=== PATIENT | female | born 1985 | race Caucasian/White ===

== ENCOUNTER 2023-07-24 10:28 | Outpatient (CLI) | payer OTHER, SELFPAY | END 2023-07-24 10:29 | disposition home or self-care (01) | PROVIDERS: PCP Physician Assistant Medical; Visit Provider Physician Assistant Medical | DX: Z00.00 Encounter for general adult medical examination without abnormal findings (principal); F41.9 Anxiety disorder, unspecified; Z13.6 Encounter for screening for cardiovascular disorders | CPT/HCPCS: 80053; 80061; 82728; 84443 ==

== ENCOUNTER 2023-09-20 10:53 | Outpatient (CLI) | payer OTHER, SELFPAY ==
--- NOTE | 2023-09-20 11:00 | CRLHL7_ITS ---
For Patients: As a result of the Century Cures Act, medical imaging exams and procedure reports are released immediately into your electronic medical record. You may view this report before your referring provider. If you have questions, please contact your health care provider. INDICATION: Ear pain. History of cholesteatoma and surgery. TECHNIQUE: High-resolution CT images of the bilateral petrous temporal bones without contrast. Multiplanar reconstructions. FINDINGS: Left ear: Postoperative changes of a canal wall up mastoidectomy. Mastoid bowl is clean. Residual mastoid air cells are clear. The scutum is sharp. The ossicular chain appears normal. There is a 2 mm x 3 mm focus of mucosal disease at the anterior margin of the epitympanum but without bony erosion or mass effect. Etiology is uncertain The cochlea, vestibule and semicircular canals are unremarkable. Right ear: The external auditory canal normally patent. Middle ear cavity is clear the scutum is sharp. Mastoid air cells are well developed and clear. The ossicular chain appears normal. The cochlea vestibule and semicircular canals. Incidental we noted is a 2 cm inflammatory retention cyst the base of the right maxillary antrum. Mild mucosal thickening in the left maxillary antrum. IMPRESSION: 1. Mature canal wall up left mastoidectomy with clean mastoid bowl. Ossicular chain appears normal. 2 x 3 mm focus of tissue at the anterior margin of the left epitympanum is nonspecific. This could represent chronic inflammation, scar or tiny recurrent/residual cholesteatoma. No associated bony erosion. 2. Negative right temporal bone. Please note that all CT scans at this facility use dose modulation, iterative reconstruction, and/or weight-based dosing when appropriate to reduce radiation dose to as low as reasonably achievable. Dictated by Mason Bejarano MD @ 09/21/2023 8:41:49 AM (Electronically Signed)
== END 2023-09-20 10:54 | disposition home or self-care (01) ==
LOC: CT 10:54
PROVIDERS: PCP Physician Assistant Medical; Visit Provider Otolaryngology
DX: H92.09 Otalgia, unspecified ear (principal)
CPT/HCPCS: 70480

== ENCOUNTER 2024-09-23 08:41 | Outpatient (CLI) | payer OTHER, SELFPAY ==
--- NOTE | 2024-09-23 09:00 | CRLHL7_ITS ---
For Patients: As a result of the 21st Century Cures Act, medical imaging exams and procedure reports are released immediately into your electronic medical record. You may view this report before your referring provider. If you have questions, please contact your health care provider. INDICATION: hx of ear surgery. Cholesteatoma resection and mastectomy. Hearing feels muffled. TECHNIQUE: CT of the temporal bones without contrast. Coronal and axial small field of view reconstructions of both temporal bones are included. COMPARISON: 09/20/2023 CT FINDINGS: RIGHT temporal bone: The external auditory canal is widely patent. No EAC stenosis or obstruction. The tympanic membrane is not thickened. The right middle ear is clear. No material is present within the sinus tympani. The ossicles are normal in appearance and location with no erosions or dislocation. The otic capsule is normal in appearance. No sclerosis within the labyrinthine canal. No fistula between the labyrinth and the middle ear. The vestibule and semicircular canals are normal in morphology with no evidence of semicircular canal dehiscence. Normal cochlear morphology with appropriate number of turns. Vestibular aqueduct is normal in size. Facial nerve canal is intact and normal in course/caliber. Petrous apex is normal. Mastoid air cells are clear. The carotid canal and jugular foramen are normal. LEFT temporal bone: Left canal wall up mastoidectomy changes. The mastoidectomy bowl is clear. The external auditory canal is widely patent. No EAC stenosis or obstruction. The tympanic membrane is not thickened. Stable 2-3 mm focus of tissue along the anterior margin of the left epitympanum (series 5, image 45). No material is present within the sinus tympani. The ossicles are normal in appearance and location with no erosions or dislocation. The otic capsule is normal in appearance. No sclerosis within the labyrinthine canal. No fistula between the labyrinth and the middle ear. The vestibule and semicircular canals are normal in morphology with no evidence of semicircular canal dehiscence. Normal cochlear morphology with appropriate number of turns. Vestibular aqueduct is normal in size. Facial nerve canal is intact and normal in course/caliber. Petrous apex is normal. Mastoid air cells are clear. The carotid canal and jugular foramen are normal. OTHER: No fracture or significant degenerative change, lytic or blastic process is demonstrated in the skull base or temporomandibular joints. The imaged intracranial structures are normal in appearance. Orbits are normal. Imaged soft tissue structures are normal in appearance. There is a 2.4 cm polyp versus retention cyst in the right maxillary sinus. Trace mucosal thickening in the left maxillary sinus. Minimal mucosal thickening in the partially visualized left frontal sinus. Rightward deviation nasal septum. 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 Incidental bilateral mastoid emissary veins. IMPRESSION: 1. Unremarkable right temporal bone structures. 2. Chronic left canal wall up mastoidectomy changes. The mastoidectomy bowl is clear. Stable 2-3 mm focus of tissue along the anterior margin of the left epitympanum but is nonspecific but could represent chronic inflammation, scar, or recurrent/residual cholesteatoma. No associated bony erosions. Otherwise unremarkable left temporal bone structures. Please note that all CT scans at this facility use dose modulation, iterative reconstruction, and/or weight-based dosing when appropriate to reduce radiation dose to as low as reasonably achievable. Dictated by Mark Mccauley MD @ 09/23/2024 2:13:09 PM (Electronically Signed)
== END 2024-09-23 08:42 | disposition home or self-care (01) ==
LOC: CT 08:43
PROVIDERS: PCP Physician Assistant Medical; Visit Provider Otolaryngology
DX: H93.8X3 Other specified disorders of ear, bilateral (principal); Z98.890 Other specified postprocedural states
CPT/HCPCS: 70480